=== PATIENT | female | born 1995 | race Caucasian/White ===

== ENCOUNTER → 2017-07-05 | Outpatient (CLI) | payer BC ==
--- NOTE | 2017-07-05 12:10 | DIAGNOSTIC IMAGING REPORT ---
FLUOROSCOPICALLY GUIDED RIGHT SHOULDER ARTHROGRAM PRE-MRI CLINICAL HISTORY: INSTABILITY OF RIGHT SHOULDER JOINT COMPARISON STUDY: No previous studies for comparison. FINDINGS: A timeout was performed. The risks the procedure were explained the patient informed consent was obtained. The patient was prepped and draped in sterile fashion. The skin was anesthetized 1% lidocaine. Under fluoroscopic guidance, a 22-gauge needle was introduced into the joint capsule. A mixture of Optiray 300 and gadolinium was instilled into the joint. A single fluoroscopic spot image documents intra-articular location of the contrast. 21 seconds of fluoroscopic time was utilized. A single fluoroscopic spot image was obtained. IMPRESSION: Successful right shoulder gadolinium arthrogram pre-MRI Electronically signed by: Troy Real M.D. 07/05/2017 12:09 PM Dictated Date/Time: 07/05/2017 12:07 PM
--- NOTE | 2017-07-05 12:45 | DIAGNOSTIC IMAGING REPORT ---
MRI ARTHROGRAM OF THE RIGHT SHOULDER CLINICAL HISTORY: Instability of right shoulder joint. Right shoulder pain. COMPARISON STUDY: No previous studies for comparison. TECHNIQUE: Following a fluoroscopically guided right arm and utilizing a 1.5 Shruthi magnet, multiplanar, multiecho imaging of the right shoulder performed without intravenous contrast. FINDINGS: Alignment of the right shoulder is anatomic. There is no fracture. No significant chondrosis is noted. A 3 mm linear T2 hypointense focus within the axillary recess suggests a small joint body. No additional joint bodies are present. No marrow replacement is present. The rotator cuff is intact. There is no rotator cuff tear. No tendon retraction or muscular atrophy is present. The proximal long head of biceps tendon is intact. There is subtle linear signal within the superior labrum which may reflect a superior labral tear. No additional labral tears are identified. IMPRESSION: 1. Minimal linear signal within the superior labrum which could reflect a labral tear or sublabral foramen. 2. 3 mm intra-articular body within the axillary recess. 3. No rotator cuff tear. Electronically signed by: Donavan Zacarias M.D. 07/05/2017 12:43 PM Dictated Date/Time: 07/05/2017 12:22 PM
== END | disposition home or self-care (01) ==
LOC: C.MRIBC 10:54
PROVIDERS: ATTEND Physical Medicine & Rehabilitation Sports Medicine
DX: M25.311 Other instability, right shoulder (principal)

== ENCOUNTER → 2017-07-13 | Outpatient (CLI) | payer BC | END | disposition home or self-care (01) | LOC: C.RDSM 09:48 | PROVIDERS: ATTEND Physical Medicine & Rehabilitation Sports Medicine | DX: M25.511 Pain in right shoulder (principal) ==

== ENCOUNTER → 2017-08-03 | Day surgery (SDC) | payer OTHER ==
[2017-08-02 11:38] VITALS: Ht 170.2 cm; Wt 61.4 kg
[~2017-08-03] VITALS: Ht 170.2 cm; Wt 61.4 kg
[~2017-08-03] MED LIST: ATROPINE SULFATE 0.1 MG/ML 5ML SYR IV PRN; BUPIVACAINE/EPINEPHRINE 0.25% 1:200,000 30 ML VIAL ONE; CEFAZOLIN 2000MG IV PUSH 10 ML IV SCH; CEFAZOLIN SOD 2000MG/10 ML IV PUSH IV ONE; DEXAMETHASONE SOD INJ 4 MG/ML VIAL ONE; EpHEDrine SULFATE INJ 50 MG/ML AMP IV PRN; EpHEDrine SULFATE INJ 50 MG/ML AMP ONE; EpINEphrine HCL INJ 1 MG/ML 5ML SYRINGE ONE; FENTANYL CITRATE INJ 50 MCG/1 ML 2 ML VIAL IV PRN; FENTANYL CITRATE INJ 50 MCG/1 ML 2 ML VIAL ONE; GLYCOPYRROLATE INJ 0.2 MG/ML VIAL ONE; LIDOCAINE HCL 2% 2 ML VIAL (20MG/ML) ONE; MIDAZOLAM HCL 1 MG/ML 2ML VIAL ONE; NEOSTIGMINE METHYLSULFATE 5 MG/5 ML SYR ONE; ONDANSETRON INJ 2 MG/ML 2 ML VIAL IV PRN; ONDANSETRON INJ 2 MG/ML 2 ML VIAL ONE; OXYCODONE/ACETAMINOPHEN 5-325 TAB PO PRN; PHENYLEPHRINE HCL INJ 10 MG/ML VIAL ONE; PROPOFOL IV EMULSION 10 MG/ML 20 ML VIAL IV ONE; ROPIVACAINE 0.5% 5 MG/ML 30 ML VIAL ONE; SCOPOLAMINE 1.5 MG TDSY TD ONE; SODIUM CHLORIDE 0.9% 1000ML 1,000 ML IV SCH; SODIUM CHLORIDE 0.9% INJ 10 ML VIAL ONE; SUCCINYLCHOLINE CHLORIDE 20 MG/ML 10 ML VIAL IV ONE; ~ANCEF~ALLERGY NOTED TO ORDERED MEDICATION SCH
[2017-08-03] MEDS: LACTATED RINGER'S 1000ML 1,000 ML IV SCH ×2 (08:00→09:46)
--- NOTE | 2017-08-03 08:41 | History & Physical Bridge Note ---
H&P Re-Evaluation Bridge Note: I have examined the patient, reviewed the History & Physical and in the interval since the performance of the History & Physical I have noted the following changes of clinical significance: consent obtained and risks identified.No changes noted
--- NOTE | 2017-08-03 08:42 | Discharge Instructions ---
Discharge Instructions Date of Service Aug 03, 2017. Visit Reason for Visit: Right Shoulder Instability, Labral Tear Discharge Discharge Diagnosis / Problem: same Discharge Goals Goal(s): Decrease discomfort, Improve function Medications Stopped Medications Name(s): na Restart Stopped Medication(s): use all scripts as directed Activity Recommendations Activity Limitations: as noted below Lifting Limitations: until after follow-up appointment Exercise/Sports Limitations: until after follow-up appointment May Resume Sexual Activity: after follow-up appointment Shower/Bathe: keep incision dry Driving or Machine Use: Anesthesia . Post Anesthesia Instructions: If you have had General Anesthesia or IV Sedation: * Do not drive today. * Resume driving when surgeon permits. * Do not make important decisions or sign legal documents today. * Call surgeon for: 1. Temperature elevations greater than 101 degrees F. 2. Uncontrollable pain. 3. Excessive bleeding. 4. Persistent nausea and vomiting. 5. Medication intolerance (nausea, vomiting or rash). * For nausea and vomiting use only clear liquids such as: tea, soda, bouillon until nausea subsides, then gradually increase diet as tolerated. * If you have any concerns or questions, call your surgeon's office. If physician is unavailable and it is an emergency, call 911 or go to the nearest emergency room. . Instructions / Follow-Up Instructions / Follow-Up The following are instructions to follow after "Shoulder Surgery" including, Acromioplasty, Rotator Cuff Repair and Instability Surgery ACTIVITY RECOMMENDATIONS: * Minimize activity after surgery. * No excessive walking, jogging, sports or laboring. * Return to activity is individualized depending on the patient and type of surgery. * Driving is not permitted until at least your first post operative visit. Please ask your doctor when it is safe to resume driving. * Expect increased discomfort with increased activity. Continue to ice the shoulder as needed. SCHOOL/WORK RECOMMENDATIONS: * You may return to sedentary work or school when you are feeling more comfortable. This is usually 3-7 days after surgery. MEDICATIONS: * You will have a prescription for pain medication and an anti-inflammatory medication after surgery. * Use the pain medication for severe pain and the anti-inflammatory for less severe pain. Once the pain medication has run out, try to use the anti-inflammatory medication. If this is not effective, contact the office for assistance. * The pain medication may cause nausea, constipation and drowsiness. You should see how they affect you before driving or similar activity. * The anti-inflammatory medication may cause stomach upset and bleeding. If this occurs let your doctor know immediately . * Take a stool softener like Colace or a laxative like Senokot to prevent constipation. DIET: * Resume previous diet. SPECIAL CARE: ICE: You have the option of an ice cooler, gel packs or ice bags. * If you have an ice cooler, refer to the instructions for that device. The ice cooler may be used continuously. * If you do not have an ice cooler, you will need to use ice bags or gel packs. Do not apply ice directly to the skin. Use a thin dressing or rosetta shirt between the skin and ice bag. Apply ice for 20-30 minutes and repeat every 2-4 hours. This is especially important for the first 7-10 days after surgery. Once the pain improves, use ice as needed. ELEVATION: * You may be more comfortable sleeping in an upright position. Use the sling to elevate your arm. DRESSING: * Your dressing will be changed at your first therapy appointment approximately 4-5 days after surgery. Band-aids, tape strips or gauze may be applied. You may then change your dressing daily. * Reapply dressing followed by the EBIce cooling pad (if chosen) and then the sling. * Always wash your hands prior to touching the incision area. * Once the stitches are removed, you may leave the wound open to air or cover with gauze. * Expect some bloody drainage for the first few days after surgery. * Leave the tape strips, if present, in place for 5-7 days. * Band-aids and gauze may be changed daily. * There may be a gauze pad in your armpit area. This can be changed daily or replaced by a dry washcloth. SLING/BRACE: * You will need to use a sling or brace after surgery. The length of time the sling is used is dependent upon the type of surgery performed. * Arthroscopic Acromioplasty requires use of the sling for 2-4 weeks for comfort. * Labral procedures and Rotator Cuff Repairs require use of the sling for a longer period of time. Please check with your doctor prior to discontinuing the sling. BATHING: * You may shower or sponge-bathe immediately after surgery. The post operative shoulder dressing is mostly water-tight. You may shower right over this dressing, but be reasonably careful not to get the gauze or incision wet. * Once the dressing has been changed on the fourth or fifth day after surgery, you may shower and get the incision wet. * Wash with regular soap and water. * Do not bathe (submerge the incision), soak, swim or use a hot tub until the incision is completely healed over with normal skin and the doctor has given the OK to proceed. * There is no need to apply any ointments, powders or salves to your incision. * Do not apply alcohol or hydrogen peroxide directly to the incision. * Diluted peroxide (50:50 mixture with sterile saline) may be used to clean dried blood from around the incision area. THERAPY: * You will begin therapy four or five days after surgery. * Organized therapy with the therapist is important for the first 2-4 months after surgery depending on the type of procedure. During that time you will attend therapy 1-3 times per week. * You will also need to do daily exercises for range of motion and strength as instructed. * Patients who have a Capsular Shift Procedure will need to abide by temporary range of motion limitations. * Patients having Rotator Cuff Surgery are not allowed to actively lift their arms until 4-6 weeks after surgery. * Please check with your doctor regarding appropriate motion restrictions. FOLLOW UP VISIT: * If not already scheduled, please call the office at to schedule a follow-up appointment for 10 days after surgery and monthly thereafter. Diet Recommendations Recommended Home Diet: resume previous diet Procedures Procedures Performed: see op note Pending Studies Studies pending at discharge: no Medical Emergencies . Who to Call and When: Medical Emergencies: If at any time you feel your situation is an emergency, please call 911 immediately. . Non-Emergent Contact Non-Emergency issues call your: Specialist Call Non-Emergent contact if: temperature is above 101.5, wound has increased drainage, wound has increased redness, wound has increased pain, you have any medication questions . . "Provider Documentation" section prepared by John Michaels. .
--- NOTE | 2017-08-03 11:26 | [facility] Post Operative Brief Note ---
Immediate Operative Summary Operative Date Aug 03, 2017. Pre-Operative Diagnosis Right Shoulder Instability, Labral Tear Post-Operative Diagnosis Same Procedure(s) Performed Right Shoulder Arthroscopic Labral Repair, debridement flap tears Surgeon Dr. Michaels Developer Programmer Analyst Surgeon(s) Addy Coronado PA-C Estimated Blood Loss Trace Findings Consistent with Post-Op Diagnosis Fluids (cc crystalloids) 1750cc Specimens None Anesthesia Type General Regional Complication(s) none Disposition Disposition: Recovery Room / PACU
--- NOTE | 2017-08-03 11:27 | [facility] Operative Report ---
Operative Report Operative Date Aug 03, 2017. Pre-Operative Diagnosis Right Shoulder Instability, Labral Tear Post-Operative Diagnosis Same Procedure(s) Performed Right Shoulder Arthroscopic Labral Repair, debridement flap tears Surgeon Dr. Michaels Clinical Esthetician Surgeon(s) Addy Coronado PA-C Estimated Blood Loss Trace Findings none Fluids (cc crystalloids) 1750cc Specimens None Complication(s) None Disposition Recovery Room / PACU I attest to the content of the Intraoperative Record and any orders documented therein. Any exceptions are noted below.
--- NOTE | 2017-08-03 12:00 | OPERATIVE REPORT ---
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 POSTOPERATIVE DIAGNOSIS: Same. OPERATION PERFORMED: 1. Exam under anesthesia. 2. Diagnostic arthroscopy. 3. Arthroscopic anterior inferior and anterior superior labral repair. SURGEON: Dr. Michaels. LABORER TANBARK: Cliff. No resident or fellow available. 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 She has pain. Physical exam, x-ray, and MRI scan consistent with labral disease, question small fibrous loose body. She wants to proceed with surgical treatment. She wants to redshirt this season. OPERATION AND FINDINGS: PROCEDURE: The patient appropriately identified, site verified, consent verified, 2 grams of Ancef confirmed as being given. The right upper extremity was examined and compared with left upper extremity, had increased sulcus sign, increased AP play reducible but definitely subluxatable. It was not locked. This was markedly different than the opposite side. She was then carefully placed in the right with the right side suspended in the left lateral decubitus position. Once everything was prepped and draped. A posterior portal made 2 cm medial and inferior to the posterolateral tip of the acromion. The joint was entered without difficulty. She is a small individual so needles were placed to localize the anterior superior and mid anterior portal. These were then enlarged with hemostats and dilators and then 2 cannulas placed there. Immediately encountered was a sublabral foramen with fraying. This was debrided. It appeared to be intact. There was eversion of the labrum with laminates and delamination of the inferior labrum. This is the area that had the suspicious area for the potential loose body. This was debrided. The area was then lifted up easily with an elevator and it could be seen that it was not markedly positively attached. So this area was all cleaned up and elevated and then the inferior glenohumeral ligament was markedly mobile. This area was then debrided of articular cartilage. Two anchor holes were then placed for the 2.4 anchors. Two sutures were placed and then the anterior inferior labrum repaired with good tension with the arm in a neutral position. The superior labrum was then identified to have complete delamination. This was debrided to a stable base and then the area of the chondral changes debrided to bleeding bone. An accessory portal was then made with needle localization and the musculotendinous area of the cuff and then a drill hole placed there, suture placed using a tight left through the anterior superior portal and then once the suture was passed the suture was then placed out the accessory direct lateral portal and then the anchor placed through this portal without any difficulty. This secured the superior labrum nicely. The shoulder was then reinspected from all angles and the labrum was nicely repaired to the anterior inferior surface of the glenoid and to the superior surface of the glenoid. The procedure was then terminated. All loose debris was removed from the joint. All instruments and fluid removed. The portals closed with 3-0 nylon, dressed with Xeroform, 4 x 4 gauze, ABD pads and Ioban dressing. Estimated blood loss was trace. Crystalloid was roughly 1750 mL. It should be mentioned that this patient has an issue with Jzlca-[id number]-Mvcyi and was cleared by cardiology and will need outpatient workup. This will be done. There is responsible for the additional 1000 mL of fluid as we waited roughly an hour and 20 minutes prior to getting clearance. This was discussed in detail with the mom and the athlete and the still wanted to proceed. Estimated return to jumping will be 6-9 months. I attest to the content of the Intraoperative Record and any orders documented therein. Any exceptions are noted below. KALAD
--- NOTE | 2017-08-03 12:34 | Anesthesiology Progress Note ---
Anesthesia Progress Note Date of Service Aug 03, 2017. 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 It appears that when the patient's HR drops into the 60s is when she goes into WPW and when her HR goes back above 70 she is back in a normal sinus rhythm. 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 She had an echocardiogram in 2014 because of her involvement in sports which was normal. I spoke to Dr. 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 He stated that it is unlikely that this should cause any problems during the surgery and that the patient should be able to undergo her procedure today without any further evaluation or treatment. He stated that at some point the patient should be followed up with a cloth stock sorter to ensure that she does not develop any further problems in the future. I explained what I had discussed with Dr. Espinal including his recommendations to Dr. Michaels, the patient and her mother. They were in agreement with proceeding. I also spoke to Dr. Batista who agreed that the patient could have her surgery done today at the surgery center.
[2017-08-03 12:42] VITALS: TEMP 36.8
[2017-08-03 13:20] VITALS: BP 102/57; PULSE 57; O2SAT 98
--- NOTE | 2017-08-03 13:52 | Anesthesia Progress Nt - [facility] ---
Anesthesia Post Op Note Date & Time Aug 03, 2017 at 13:28 Vital Signs Pain Intensity: 0 Vital Signs Past 12 Hours Date Time Temp Pulse Resp B/P (MAP) Pulse Ox O2 Delivery O2 Flow Rate FiO2 08/03/17 13:20 57 16 102/57 (72) 98 Room Air 08/03/17 12:42 36.8 52 16 121/2 (41) 100 Room Air 08/03/17 12:31 50 16 98 08/03/17 12:31 50 16 08/03/17 12:30 116/65 08/03/17 12:30 37.1 52 24 116/65 98 Room Air 08/03/17 12:26 47 13 98 08/03/17 12:26 48 13 08/03/17 12:25 121/64 08/03/17 12:23 54 18 98 08/03/17 12:23 53 18 08/03/17 12:21 37.0 08/03/17 12:20 120/69 08/03/17 12:18 49 18 99 08/03/17 12:18 50 18 08/03/17 12:16 116/61 08/03/17 12:13 47 15 08/03/17 12:13 47 15 100 08/03/17 12:10 118/68 08/03/17 12:08 51 17 100 08/03/17 12:08 51 17 08/03/17 12:05 119/67 08/03/17 12:03 61 16 08/03/17 12:03 60 16 08/03/17 12:01 118/72 08/03/17 11:58 53 16 18 11:58 54 16 18 11:55 129/64 18 11:53 52 16 100 18 11:53 52 16 18 11:50 120/66 18 11:48 61 19 18 11:48 54 19 18 11:45 118/70 18 11:43 56 18 08/03/17 11:43 56 18 100 18 11:40 119/81 18 11:39 123/63 18 11:38 37.1 71 20 123/63 100 Mask 6 1/19/18 09:48 80 17 1/19/18 09:47 67 19/18 09:47 68 25 100 19/18 09:45 132/66 08/03/18 09:42 68 22 100 08/03/18 09:42 71 08/03/18 09:40 124/70 19/18 09:37 62 15 100 08/03/18 09:37 59 19/18 09:35 119/67 08/03/18 09:32 63 20 100 18 09:32 62 08/03/18 09:30 130/62 19/18 09:27 64 20 100 08/03/18 09:27 64 08/03/18 09:25 124/63 18 09:22 61 23 100 08/03/18 09:22 59 08/03/18 09:21 63 08/03/18 09:21 63 23 100 08/03/18 09:20 117/65 18 09:16 70 21 100 18 09:16 67 18 09:15 125/63 08/03/18 09:11 67 13 100 18 09:11 70 08/03/18 09:10 132/67 08/03/18 09:06 87 08/03/18 09:06 90 21 124/63 100 18 09:01 78 08/03/18 09:01 76 16 100 18 09:00 122/65 08/03/18 08:56 81 08/03/18 08:56 82 21 100 18 08:55 125/60 08/03/18 08:51 72 08/03/18 08:51 74 33 100 08/03/18 08:50 121/73 19/18 08:46 68 7 100 08/03/18 08:46 67 08/03/18 08:45 132/67 08/03/18 08:41 91 08/03/18 08:41 89 15 100 08/03/18 08:40 137/70 19/18 08:39 125/74 19/18 07:45 140/84 18 07:41 37.0 86 22 140/84 (102) 97 Room Air Notes Mental Status: alert / awake / arousable, participated in evaluation Pt Amnestic to Procedure: Yes Nausea / Vomiting: adequately controlled Pain: adequately controlled Airway Patency, RR, SpO2: stable & adequate BP & HR: stable & adequate Hydration State: stable & adequate Anesthetic Complications: no major complications apparent The patient is a 21 y/o with no significant PMH who was noted to have Pozp-Dwezqznjas-Ityvc on EKG after she was sedated and the nerve block was performed. It appears that when the patient's HR drops into the 60s is when she goes into WPW and when her HR goes back above 70 she is back in a normal sinus rhythm. 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 She had an echocardiogram in 2014 because of her involvement in sports which was normal. I spoke to Dr. 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 He stated that it is unlikely that this should cause any problems during the surgery and that the patient should be able to undergo her procedure today without any further evaluation or treatment. He stated that at some point the patient should be followed up with a men's leather dress belt maker to ensure that she does not develop any further problems in the future. I explained what I had discussed with Dr. Espinal including his recommendations to Dr. Michaels, the patient and her mother. They were in agreement with proceeding. I also spoke to Dr. Batista who agreed that the patient could have her surgery done today at the surgery center. Intraoperatively the patient remained hemodynamically stable. Her HR was mainly bradycardic in the 40-50s and BPs in the 90s/60. She was extubated without difficulty and taken to recovery where she continued to do well. I spoke to the patient and her mother again regarding the patient's EKG and explained that with WPW the concern is developing a rapid heart rhythm that could lead to cardiac arrest. I informed that I would recommend that she follow up with a men's leather dress belt maker and they were agreeable. I spoke to the patient' s PCP, Dr. Dinorah Uriarte who will be following up with the patient on Sunday and will also order a cardiology consult. I instructed the patient to call Dr. Uriarte if she does not hear from her on Sunday. I instructed the patient to avoid stimulants that could increase her HR including caffeine or exercise or anything that could induce stress or anxiety until she is seen by the men's leather dress belt maker. I also instructed her to go to the ED if she has any chest pain, rapid or irregular heart rate, shortness of breath, lightheaded or dizziness or with any other concerns. She understands and agrees.
== END | disposition home or self-care (01) ==
LOC: X.SURG 07:29
PROVIDERS: ATTEND Physical Medicine & Rehabilitation Sports Medicine
DX: S43.431A Superior glenoid labrum lesion of right shoulder, initial encounter (principal); M25.311 Other instability, right shoulder; X58.XXXA Exposure to other specified factors, initial encounter

== ENCOUNTER → 2017-09-03 | Outpatient (CLI) | payer OTHER | END | disposition home or self-care (01) | LOC: C.RDSM 15:40 | PROVIDERS: ATTEND Physical Medicine & Rehabilitation Sports Medicine | DX: Z98.890 Other specified postprocedural states (principal) ==